=== PATIENT | male | born 1970 | race Caucasian/White ===

== ENCOUNTER 2020-12-02 11:30 | Inpatient (IN) | payer SELFPAY ==
[2020-12-02 11:39] VITALS: BP 144/96; PULSE 72; RESP 18; TEMP 35.9; O2SAT 96
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
[2020-12-02] MEDS: ARIPiprazole 10 mg Tablet 5 MG PO (13:50)
[2020-12-02 14:00] VITALS: BP 144/96; PULSE 72; RESP 18; TEMP 35.9; O2SAT 96
[2020-12-02] MEDS: trazodone 50 mg Tablet PO (20:37)
[2020-12-02 21:14] VITALS: BP 130/78; PULSE 61; RESP 14; TEMP 36.8; O2SAT 96
[2020-12-03 06:00] VITALS: BP 119/69; PULSE 58; RESP 15; TEMP 36.4; O2SAT 97
[2020-12-03] MEDS: ARIPiprazole 10 mg Tablet 5 MG PO (08:04)
[2020-12-03 13:28] VITALS: BP 119/69; PULSE 64; RESP 16; TEMP 36.4; O2SAT 97
--- NOTE | 2020-12-03 14:39 | NPU.GN ---
[facility] Topic:Coping skills for stress General Mood of Group: Patient was resting in his bed, he is easily agitated, I did not disturb him.
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
[2020-12-03 15:57] VITALS: BP 119/69; PULSE 64; RESP 16; TEMP 36.4; O2SAT 97
== END 2020-12-03 18:59 | disposition home or self-care (01) | DRG 883 ==
PROVIDERS: Admitting Provider Psychiatry & Neurology Child & Adolescent Psychiatry; Visit Provider Psychiatry & Neurology Child & Adolescent Psychiatry
DX: F63.81 Intermittent explosive disorder (principal); F43.10 Post-traumatic stress disorder, unspecified; Z91.5 Personal history of self-harm; G47.00 Insomnia, unspecified; Z63.0 Problems in relationship with spouse or partner; Z62.810 Personal history of physical and sexual abuse in childhood